=== PATIENT | male | born 2005 | race Caucasian/White ===

== ENCOUNTER 2025-07-17 09:45 | Outpatient (CLI) | payer OTHER, SELFPAY ==
--- OUTSIDE RECORDS SUMMARY | 2009-11-07 07:45 | XMS_ITS | Continuity of Care Document ---
Author Organization [facility] Address [address] [place] [address] Phone Care Team Providers Care Lamp Shade Maker Name Role Phone Purcell OD, Quinton Unavailable Unavailable Procedures Procedure Date Eye Exam, New Patient Refraction Advance Directives Directive Yes / No Effective Date File Name No Information Encounters Encounter Description Practice Location Reason(s) For Visit Diagnoses Date Provider Providers Copied on Encounter [facility], [address] [place], [place], [id number], [place] tel:[phone] [facility] No Information [phone] Purcell OD Quinton. [address] , [address], [place], [address], [place]. tel:[phone] Family History Family Member Type Diagnosis Age At Onset No Information Payers Payer name Insurance type Covered libertarian ID Authoryonathan turner(s) [employer] Plan CI [id number] Social History Type Description Quantity Date Captured Comments Sex Male Smoking Status No Information Chief Complaint And Reason For Visit No Information Reason For Referral Reason For Referral No Information History Of Present Illness Encounter Date Complaint History Of Prese nt Illness No Information Functional Status Date Functional Assessmen t No Information Instructions Date Instruction Additional Infor mation No Information Assessments Type Assessment Date No Information Patient Care Teams Name Effective Dates (start - stop) Status Members No Information
--- OUTSIDE RECORDS SUMMARY | 2025-07-17 10:02 | XMS_ITS | Clinical Summary ---
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6 oz pur e alcohol) Sex and Gender Information Value Date Recorded Sex Assigned at Male 08/18/2022 8:46 PM EDT Legal Sex Male 8:46 PM EDT Gender Identity Not on file Sexual Orientation Not on file Last Filed Vital Signs Vital Sign Reading Time Taken Comments Blood Pressure - - Pulse - - Temperature - - Respiratory Rate - - Oxygen Saturation - - Inhaled Oxygen Concentration - - Weight 85.7 kg (188 lb 15 oz) 11/18/2024 11:59 A M FOREPART ROUNDER Height 184.6 cm (6' 0.68) 11/18/2024 11:[address] Body Mass Index 25.15 11/18/2024 11:59 AM FOREPART ROUNDER Plan of Treatment Not on file Insurance [facility] [employer] Care Teams Ribber Relationship Specialty Start Date End Date Katilin Enamorado MD [address] [place] [address] PCP - General Pediatrics 11/18/24
--- OUTSIDE RECORDS SUMMARY | 2025-07-17 10:02 | XMS_ITS | Clinical Summary ---
Author Organization [facility] Address [address] [place] [address] Care Team Providers Care Superintendent Gas Distribution Name Role Phone Kaitlin Enamorado MD Primary Care Provider [phone] Source Comments [facility],non-owned Affiliates and Associated Physician Practices is amultiple site organization consisting of ambulatory clinics and hospital sitesin [place], [place], [place] and [place]. This disclosure is being madepursuant to the Care Everywhere program and may not contain all information available regarding this patient. Last updated 18.[facility] Allergies No known active allergies Medications * Be aware that medications may not be up to date on this document. Alwaysverify current medications with the patient. tretinoin (RETIN-A) 0.05 % creamIndication s:Acne vulgaris Apply to affected area at bedtime 45 g 5 08/19/2017 Active cetaphil gentle cleanser (CETAPHIL) lotionIndicatio ns:Acne vulgaris Wash face 1-2 times per day 1 bottles 2 07/22/2018 Active benzoyl peroxide (BENZAC AC) 5 % gelIndications: Acne vulgaris Apply to entire face every morning. 56.7 g 2 08/13/2018 Active montelukast (SINGULAIR) 5 MG chew tablet MILITARY PAY CLERK ONE T PO QHS 2 09/06/2018 Active doxycycline hyclate (VIBRAMYCIN) 100 MG capsuleIndicati ons:Acne Vulgaris Take one capsule by mouth in the morning and in the evening. Reasons: Common Acne 60 capsule 2 10/29/2018 Active tretinoin (RETIN-A) 0.05 % creamIndication s:Acne Vulgaris Apply to face, chest, and back nightly. 30# of days supply Reasons: Common Acne 45 g 3 10/29/2018 Active clindamycin-sally zoyl peroxide (BENZACLIN) 1-5 % gelIndications: Acne vulgaris Apply to face, chest and back daily in the morning. 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 as a , occurred in [facility] in [facility] Family History Medical History Relation Name Comments Cancer - Skin, Melanoma Maternal Grandfather Cancer - Skin, Non Melanoma Maternal Grandfather Asthma Neg Hx Eczema Neg Hx Hyperlipidemia Neg Hx Psoriasis Neg Hx Relation Name Status Comments Maternal Grandfather Social History Tobacco Use Types Packs/Day Years Used Date Smoking Tobacco: Passive Smo ke Exposure - Never Smoker Smokeless Tobacco: Never Sex and Gender Information Value Date Recorded Sex Assigned at Not on file Legal Sex Male 2:14 PM FORMAT PROOFREADER Gender Identity Not on file Sexual Orientation Not on file Last Filed Vital Signs Vital Sign Reading Time Taken Comments Blood Pressure - - Pulse - - Temperature - - Respiratory Rate - - Oxygen Saturation - - Inhaled Oxygen Concentration - - Weight 53.7 kg (118 lb 6.2 oz) 10/29/2018 10:31 AM FORMAT PROOFREADER Height 179.5 cm (5' 10.67) 10/29/2018 10:31 AM FORMAT PROOFREADER Body Mass Index 16.67 10/29/2018 10:31 AM FORMAT PROOFREADER Plan of Treatment Health Maintenance Due Date Last Done Comments HIV SCREENING 2019 HPV VACCINE (1 - Male 3-dose series) 2019 MENINGOCOCCAL (Group B) VACC INE SHARED DECISION-MAKING (1 of 2 - Standard) 2020 HEPATITIS C SCREENING 05/22/2022 DTAP/TDAP/TD VACCINES (1 - Tdap) 2023 HEPATITIS B VACCINE (1 of 3 - 19+ 3-dose series) 2023 DEPRESSION SCREENING 11/09/2024 COVID-19 VACCINE (1 - 2023-2 5 season) 2025 INFLUENZA VACCINE (#1) 2025 ZOSTER VACCINE (1 of 2) 2054 HIB VACCINE Aged Out No longer eligi ble based on patient's age to complete this topic MENINGOCOCCAL GROUPS A/C/Y/W VACCINE Aged Out No longer eligible b ased on patient's age to complete this topic PNEUMOCOCCAL VACCINE Aged Out No long er eligible based on patient's age to [place] [address] MED[address] [facility] [address] [place] [address] MEDICAID - [facility] Care Teams Superintendent Gas Distribution Relationship Specialty Start Date End Date Kaitlin Enamorado MD [facility] [facility] [address] [place] [address] PCP - General Pediatrics 08/17/12
[2025-07-17 10:46] LABS: Hematocrit 51.3 % (42.0-52.0); Hemoglobin 18.1 g/dL (14.0-18.0); Immature Granulocyte Percent A 0.2 % (0-0.5); Lymphocytes Absolute Auto 1.99 K/mm3 (0.9-3.2); Mean Corpuscular HGB Conc 35.3 g/dl (32-36); Mean Corpuscular Hemoglobin 32.9 pg (26-34); Mean Corpuscular Volume 93.3 fl (80-100); Nucleated Red Blood Cells Absolute Auto 0.000 K/mm3 (0.0-0.012); Nucleated Red Blood Cells Perc 0.0 % (0.0-0.2); Platelet Count Result 272 k/mm3 (150-375); Red Blood Count 5.50 M/mm3 (4.6-6.20); White Blood Count 8.7 K/mm3 (4.5-10.0)
[2025-07-17 11:03] LABS: Alanine Aminotransferase 29 U/L (6-50); Albumin Level 4.8 g/dL (3.5-5.1); Alkaline Phosphatase 48 U/L (38-126); Anion Gap 10 mmol/L (4-12); Aspartate Amino Transferase 30 U/L (17-59); Bilirubin,Total 1.3 mg/dL (0.2-1.3); Blood Urea Nitrogen 17 mg/dL (9-20); Calcium 9.8 mg/dL (8.4-10.2); Carbon Dioxide 29 mmol/L (22-30); Chloride 103 mmol/L (98-107); Cholesterol 147 mg/dL (0-200); Estimated Glomerular Filt Rate > 60; Glucose 92 mg/dL (65-110); HDL Direct 44 mg/dL; Potassium 4.2 mmol/L (3.4-5.0); Sodium 142 mmol/L (137-145); Total Protein 8.3 g/dL (6.3-8.2); Triglycerides 105 mg/dL (<150)
[2025-07-17 11:04] LABS: Iron 124 ug/dL (49-181)
[2025-07-17 11:15] LABS: Percent Iron Saturation 37 % (20-50)
[2025-07-17 11:34] LABS: Thyroid Stimulating Hormone 1.050 uIU/mL (0.465-4.680)
[2025-07-17 12:10] LABS: Vitamin B12 801.0 pg/mL (239-931)
== END 2025-07-17 09:46 | disposition home or self-care (01) ==
LOC: ANHLAB 09:48
PROVIDERS: PCP Family Medicine; Visit Provider Nurse Practitioner Adult Health
DX: R53.83 Other fatigue (principal)
CPT/HCPCS: 36415; 80053; 80061; 82306; 82607; 82746; 83540; 83550; 84443; 85025